=== PATIENT | male | born 1975 | race Two or more races ===

== ENCOUNTER 2019-11-22 01:20 | Emergency (ER) | payer OTHER ==
[~2019-11-22] VITALS: Ht 167.6 cm; Wt 72.7 kg
[2019-11-22] MEDS ORDERED: ACETAMINOPHEN 500 MG TABLET PO ONE (02:15)
[2019-11-22 04:00] VITALS: BP 131/84
== END 2019-11-22 06:26 | disposition home or self-care (01) ==
LOC: EMS 01:20
DX: S52.571A Other intraarticular fracture of lower end of right radius, initial encounter for closed fracture (principal); S52.611A Displaced fracture of right ulna styloid process, initial encounter for closed fracture; Z98.890 Other specified postprocedural states; X58.XXXA Exposure to other specified factors, initial encounter; Y93.89 Activity, other specified; Y92.89 Other specified places as the place of occurrence of the external cause; Y99.8 Other external cause status